=== PATIENT | female | born 1985 | race Caucasian/White ===

== ENCOUNTER 2016-11-22 12:06 | Emergency (ER) | payer MEDICAID ==
[2016-11-22 12:36] VITALS: BP 140/71
[2016-11-22] MEDS ORDERED: Sodium Chloride 0.9% 10 ML Syringe FLUSH PRN (13:08)
[2016-11-22] MEDS ORDERED: Iopamidol 612 MG/ML 150 ML Bottle IV SCH (13:15)
--- NOTE | 2016-11-22 13:41 | EDM.PDOC ---
[id number] Complaint: STOMACH IS SORE Time Seen by Provider: 11/22/16 12:45 Source of Information: Reports: Patient History Limitations: Reports: No limitations - History of Present Illness INITIAL COMMENTS - FREE TEXT/NARRATIVE: 31-year-old female with an ongoing and persistent sensation of pelvic pressure and inability to have a bowel movement for the last 2 weeks, started after spiking a fever for 2 days but had no diarrhea or vomiting. Since that time she said generalized myalgias, lower abdominal pain and a sensation of constipation. She's been seen at the clinic and has had lab and x-rays done and was given mag citrate. This caused several days of diarrhea but now she has not had a bowel movement in 3 days and she still has her symptoms, no new fevers. Duration: Week(s): (2 weeks) Location: Reports: abdomen ( lower abdomen and pelvic area) Quality: Reports: Ache, Pressure Severity: moderate Worsens with: Reports: Other (Worsens with bowel movement attempts) Associated Symptoms: Reports: fever/chills (Had a fever 2 weeks ago), other ( Generalized muscle aching). Denies: chest pain, cough, diaphoresis, nausea/ vomiting Lower Abdomen Pain Score (Numeric/FACES): 3 - Related Data Allergies Allergy/AdvReac Type Severity Reaction Status Date / Time No Known Allergies Allergy Verified 06/14/14 13:02 Past Medical History - Past Health History Medical/Surgical History: Denies Medical/Surgical History - Past Surgical History GI Surgical History: Reports: Cholecystectomy Social & Family History - Tobacco Use Smoking Status *Q: Current Every Day Smoker Years of Tobacco use: 20 Packs/Tins Daily: 0.5 Used Tobacco, but Quit: No Second Hand Smoke Exposure: Yes - Caffeine Use Caffeine Use: Reports: Coffee - Alcohol Use Days Per Week of Alcohol Use: 0 - Recreational Drug Use Recreational Drug Use: No Drug Use in Last 12 Months: Yes Recreational Drug Type: Reports: Methamphetamine Recreational Drug Use Frequency: Not Used In Over 3 Months ED ROS GENERAL - Review of Systems Review Of Systems: See Below Constitutional: Reports: fever (2 weeks ago), malaise HEENT: Reports: No symptoms Respiratory: Denies: Shortness of Breath Cardiovascular: Denies: Chest pain Endocrine: Denies: fatigue GI/Abdominal: Reports: Abdominal pain, Constipation : Reports: dysuria Musculoskeletal: Reports: other (Generalized muscle aches) Skin: Reports: no symptoms Neurological: Denies: Dizziness, Headache Psychiatric: Reports: No symptoms ED EXAM, GENERAL - Physical Exam Exam: See Below Exam Limited By: No limitations General Appearance: alert, no apparent distress Eye Exam: bilateral eye: normal inspection Respiratory/Chest: no respiratory distress, lungs clear Cardiovascular: regular rate, rhythm GI/Abdominal: Soft, Tender (Tenderness mostly across the left lower quadrant but no guarding or rebound) Rectal (Female) Exam: Normal Exam (Some discomfort with the exam but a small amount of soft brown stool is present. No impaction, stool was guaiaced and was negative.) Extremities: normal inspection Neurological: alert, oriented Course - Vital Signs Last Recorded V/S: Last Vital Signs Temp 98.2 F 11/22/16 12:34 Pulse 85 11/22/16 12:34 Resp 18 11/22/16 12:34 BP 140/71 11/22/16 12:34 Pulse Ox 98 11/22/16 12:34 - Orders/Labs/Meds Meds: Medications Discontinued Medications Generic Name Dose Route Start Last Admin Trade Name Freq PRN Reason Stop Dose Admin Sodium Chloride 79 mls @ 3 mls/sec 11/22/16 13:08 11/22/16 13:31 Normal Saline IV 11/22/16 13:09 3 mls/sec ONETIME ONE Administration Iopamidol 128 ml 11/22/16 13:15 11/22/16 13:31 Isovue-300 (61%) IV 128 ml . DIRECTED KELLY Administration Sodium Chloride 10 ml 11/22/16 13:08 11/22/16 13:31 Saline Flush FLUSH 10 ml ONETIME PRN Administration PER RADIOLOGY PROTOCOL - Re-Assessments/Exams Free Text/Narrative Re-Assessment/Exam: 11/22/16 13:40 Lab and urine were reviewed from 3 days ago at the clinic and were all normal. The stool was guaiac and was negative. Patient was scanned with CT of the abdomen and pelvis with IV contrast. 11/22/16 13:56 CT scan was negative. Had a long talk with the patient about getting back to her normal routine, normal diet, and try not to worry about bowel movement numbers and frequency. Encouraged probiotics. I think she is having a spastic colon in the sigmoid area from her recent illness and treatments. She can return anytime if worsening, especially fever or increased pain. Departure - Departure Time of Disposition: 14:18 Disposition: Home, Self-Care 01 Condition: good Clinical Impression: Abdominal pain - Discharge Information Instructions: Abdominal Pain, Adult, [id number] Referrals: Teri Mcdonald NP [Primary Care Provider] - Forms: ED Department Discharge Care Plan Goals: Try to increase diet and activity as tolerated. Return any time if worsening such as fever, increased pain, or consider recheck next week if not improving satisfactorily.
--- NOTE | 2016-11-22 13:51 | CT ---
Abdomen pelvis CT. History: Persistent abdominal pain. Technique: IV and oral contrast were administered followed by axial imaging from the lung bases exte nding through the abdomen and pelvis. Coronal images were reconstructed. Total DLP: 980 Comparison: May 2014. Findings: Limited evaluation of the lower lung dunne demonstrates no abnormalities. The gallbladder is surgically absent. The liver, pancreas, and spleen are unremarkable. The adrenal glands are normal in size. The kidneys demonstrate symmetric excretion of contrast. There is no hydr onephrosis or ureter. There is no large or small bowel distention. There is a lack of stool in the distal portion of the t ransverse colon. The rodriguez of the colon at this location appear mildly thickened. The finding likely reflects underdistention. There is trace fluid in the cul-de-sac which is likely physiologic. No ad nexal masses are demonstrated. Impression: 1. Prior cholecystectomy. 2. The rodriguez of the distal transverse colon appear mildly thickened. The finding likely reflects und erdistention. Mild colitis cannot be excluded. 2. No additional findings.
== END 2016-11-22 14:18 | disposition home or self-care (01) ==
LOC: JP.ED 12:06
DX: R10.32 Left lower quadrant pain (principal); F17.210 Nicotine dependence, cigarettes, uncomplicated; Z90.49 Acquired absence of other specified parts of digestive tract
CPT/HCPCS: 74177; 82272; 99284; J7030; J7050

== ENCOUNTER 2017-03-04 14:41 | Emergency (ER) | payer MEDICAID ==
[2017-03-04 15:00] VITALS: BP 127/71
--- NOTE | 2017-03-04 15:33 | EDM.PDOC ---
ED HPI GENERAL MEDICAL PROBLEM - General Chief Complaint: [facility] Problem Stated Complaint: 10 WEEKS PG - BLOODY MUCOUS Time Seen by Provider: 03/04/17 15:29 Source of Information: Reports: Patient History Limitations: Reports: No Limitations - History of Present Illness INITIAL COMMENTS - FREE TEXT/NARRATIVE: Pt with spotting and mucousy discharge noted this am about 0930. Mild pain in the right lower quadrant. No further bleeding since that time. No new meds. No new activities. Has had an initial ultrasound in January and everything was fine. Is a . New partner this . Is taking her vitamins as prescribed. Onset: Today Onset Date: 03/04/17 Onset Time: 09:30 Duration: Improving Severity: Mild Improves with: Reports: None Worsens with: Reports: None Associated Symptoms: Reports: No Other Symptoms Right Pelvic Pain Score (Numeric/FACES): 1 - Related Data Allergies Allergy/AdvReac Type Severity Reaction Status Date / Time No Known Allergies Allergy Verified 03/04/17 15:15 Past Medical History - Past Health History Medical/Surgical History: Denies Medical/Surgical History [facility] History: Reports: - Past Surgical History GI Surgical History: Reports: Cholecystectomy Social & Family History - Tobacco Use Smoking Status *Q: Unknown Ever Smoked Years of Tobacco use: 20 Packs/Tins Daily: 0.5 Used Tobacco, but Quit: No Second Hand Smoke Exposure: Yes - Caffeine Use Caffeine Use: Reports: Coffee - Alcohol Use Days Per Week of Alcohol Use: 0 - Recreational Drug Use Recreational Drug Use: No Drug Use in Last 12 Months: Yes Recreational Drug Type: Reports: Methamphetamine Recreational Drug Use Frequency: Not Used In Over 3 Months ED ROS GENERAL - Review of Systems Review Of Systems: See Below Constitutional: Reports: No Symptoms HEENT: Reports: No Symptoms Respiratory: Reports: No Symptoms Cardiovascular: Reports: No Symptoms : Reports: Discharge, Other (vaginal bleeding this am) ED EXAM - Physical Exam Exam: See Below Exam Limited By: No Limitations General Appearance: Alert, WD/WN, No Apparent Distress Nose: Normal Inspection, Normal Mucosa, No Blood Throat/Mouth: Normal Inspection, Normal Lips, Normal Teeth, Normal Gums, Normal Oropharynx, Normal Voice, No Airway Compromise Head: Atraumatic, Normocephalic Neck: Normal Inspection, Supple, Non-Tender, Full Range of Motion Respiratory/Chest: No Respiratory Distress, Lungs Clear, Normal Breath Sounds, No Accessory Muscle Use, Chest Non-Tender Cardiovascular: Normal Peripheral Pulses, Regular Rate, Rhythm, No Edema, No Gallop, No JVD, No Murmur, No Rub (Female) Exam: Normal External Exam, Normal Speculum Exam, Normal Bimanual Exam Heart Tones: Not Whitley Course - Vital Signs Last Recorded V/S: Last Vital Signs Temp 98.7 F 03/04/17 15:09 Pulse 70 03/04/17 15:09 Resp 16 03/04/17 15:09 BP 127/71 03/04/17 15:09 Pulse Ox 100 03/04/17 15:09 - Orders/Labs/Meds Orders: Active Orders 24 hr Category Date Time Status OB Transvaginal [US] Stat Exams 03/04/17 15:22 Taken PATIENT RETYPE [BBK] Stat Lab 03/04/17 15:23 Results TYPE AND SCREEN [BBK] Stat Lab 03/04/17 15:23 Results Labs: Laboratory Tests 03/04/17 03/04/17 03/04/17 Range/Units 15:23 15:30 15:30 WBC 9.0 (4.5-11.0) K/uL RBC 4.25 (3.30-5.50) M/uL Hgb 13.4 D (12.0-15.0) g/dL Hct 38.0 (36.0-48.0) % MCV 89 (80-98) fL MCH 32 H (27-31) pg MCHC 35 (32-36) % Plt Count 331 (150-400) K/uL Neut % (Auto) 67 H (36-66) % Lymph % (Auto) 22 L (24-44) % [place] % (Auto) 7 H (2-6) % Eos % (Auto) 3 (2-4) % Baso % (Auto) 1 (0-1) % HCG, Quant 89116 H (0-6) mIU/mL Blood Type O POSITIVE Gel Antibody Screen Negative Departure - Departure Time of Disposition: 16:39 Disposition: Home, Self-Care 01 Condition: Fair Clinical Impression: Incomplete miscarriage, Incomplete - Discharge Information Forms: ED Department Discharge Additional Instructions: CBC WNL. Stable hemoglobin of 13.4. Blood type O+. Quantitative HCG 09713. Ultrasound reveals no heart tones. Pt informed of results. Will need to followup with [facility] for serial HCG's until down to 0. May discuss D&C with them. Discussed normal course of miscarriage. Pt voices understanding. - Problem List & Annotations (1) Incomplete miscarriage SNOMED Code(s): 112974221 Code(s): O03.4 - INCOMPLETE SPONTANEOUS WITHOUT COMPLICATION Status: Acute Priority: Medium Current Visit: Yes - My Orders Last 24 Hours: My Active Orders 03/04/17 15:22 OB Transvaginal [US] Stat 03/04/17 15:23 PATIENT RETYPE [BBK] Stat TYPE AND SCREEN [BBK] Stat - Assessment/Plan Last 24 Hours: My Active Orders 03/04/17 15:22 OB Transvaginal [US] Stat 03/04/17 15:23 PATIENT RETYPE [BBK] Stat TYPE AND SCREEN [BBK] Stat
== END 2017-03-04 16:57 | disposition home or self-care (01) ==
LOC: JP.ED 14:41
DX: O03.4 Incomplete spontaneous abortion without complication (principal); Z90.49 Acquired absence of other specified parts of digestive tract
CPT/HCPCS: 36415; 76817; 84702; 85025; 86850; 86900; 86901; 99284-25

== ENCOUNTER 2018-11-30 12:10 | Emergency (ER) | payer MEDICAID ==
[2018-11-30 12:45] VITALS: BP 144/72
--- NOTE | 2018-11-30 12:58 | EDM.PDOC ---
ED HPI GENERAL MEDICAL PROBLEM - General Chief Complaint: ENT Problem Stated Complaint: SORE THROAT Time Seen by Provider: 11/30/18 12:28 History Limitations: Reports: No Limitations - History of Present Illness INITIAL COMMENTS - FREE TEXT/NARRATIVE: chief complaint: sore throat this is a 33 year old female present to ER for evaluation of sore throat since last night. getting worse, now with body ache. 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 Onset: Gradual Onset Date: 11/29/18 Duration: Hour(s):, Getting Worse Location: Reports: Generalized (body aches and sore throat) Quality: Reports: Same as Previous Episode Severity: Moderate Improves with: Reports: None Worsens with: Reports: None Context: Reports: Sick Contact Associated Symptoms: Reports: Fever/Chills, Malaise, Other (sore throat) - Related Data Allergies Allergy/AdvReac Type Severity Reaction Status Date / Time No Known Allergies Allergy Verified 11/30/18 12:26 Home Meds: Home Meds Levonorgestrel-Ethin Estradiol [Levora-28 Tablet] 11/30/18 [History] Past Medical History - Past Health History Medical/Surgical History: Denies Medical/Surgical History [employer] History: Reports: - Past Surgical History GI Surgical History: Reports: Cholecystectomy Social & Family History - Tobacco Use Smoking Status *Q: Current Every Day Smoker Years of Tobacco use: 15 Packs/Tins Daily: 0.5 - Caffeine Use Caffeine Use: Reports: Coffee - Living Situation & Occupation 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.) ED ROS ENT - Review of Systems Review Of Systems: See Below Constitutional: Reports: Fever, Chills, Malaise, Fatigue HEENT: Reports: Throat Pain Respiratory: Reports: No Symptoms Cardiovascular: Reports: No Symptoms Endocrine: Reports: No Symptoms GI/Abdominal: Reports: No Symptoms Skin: Reports: No Symptoms Neurological: Reports: No Symptoms Psychiatric: Reports: No Symptoms Hematologic/Lymphatic: Reports: No Symptoms ED EXAM, ENT - Physical Exam Exam: See Below Exam Limited By: No Limitations General Appearance: Alert, WD/WN, No Apparent Distress Eye Exam: Bilateral Eye: Normal Inspection Ears: Normal External Exam, Normal Canal, Hearing Grossly Normal, Normal TMs Nose: Normal Inspection, Normal Mucousa, No Blood Mouth/Throat: Normal Gums, Normal Lips, Normal Teeth, Tonsillar Erythema, Tonsillar Exudates, Tonsillar Swelling Head: Atraumatic, Normocephalic Neck: Normal Inspection, Supple, Lymphadenopathy (R), Lymphadenopathy (L) Respiratory/Chest: No Respiratory Distress, Lungs Clear, Normal Breath Sounds Cardiovascular: Regular Rate, Rhythm, No Murmur Back: Normal Inspection, Full Range of Motion Extremities: Normal Inspection, Normal Range of Motion Neurological: No Motor/Sensory Deficits Psychiatric: Normal Affect, Normal Mood Skin: Warm, Dry, Intact, Normal Color, No Rash Lymphatic: Adenopathy Course - Vital Signs Last Recorded V/S: Last Vital Signs Temp 37.4 C 11/30/18 12:34 Pulse 92 11/30/18 12:34 Resp 17 11/30/18 12:34 BP 144/72 H 11/30/18 12:34 Pulse Ox 92 L 11/30/18 12:34 - Re-Assessments/Exams Free Text/Narrative Re-Assessment/Exam: 11/30/18 12:55 strep throat positive, will treat for strep throat, work slip given. Departure - Departure Time of Disposition: 12:56 Disposition: Home, Self-Care 01 Condition: Good Clinical Impression: Strep sore throat - Discharge Information *PRESCRIPTION DRUG MONITORING PROGRAM REVIEWED*: Not Applicable *COPY OF PRESCRIPTION DRUG MONITORING REPORT IN PATIENT NATA: Not Applicable Instructions: Sore Throat, [id number], Strep Throat Referrals: PCP,None [Primary Care Provider] - Forms: ED Department Discharge, ED Return to Work/School Form Care Plan Goals: Strep Throat -Zithromax daily for 5 days -take Motrin and Tylenol as directed for pain or fever -new tooth brush -avoid sharing food or drink x 24 hours or until symptom resolve -no work sunday Return to ER if not improved or symptoms worsen. - Problem List & Annotations (1) Strep sore throat SNOMED Code(s): 58709766 Code(s): J02.0 - STREPTOCOCCAL PHARYNGITIS Status: Acute Priority: High Current Visit: Yes - Problem List Review Problem List Initiated/Reviewed/Updated: Yes - Assessment/Plan Plan: Strep Throat -Zithromax daily for 5 days -take Motrin and Tylenol as directed for pain or fever -new tooth brush -avoid sharing food or drink x 24 hours or until symptom resolve -no work sunday Return to ER if not improved or symptoms worsen.
== END 2018-11-30 13:09 | disposition home or self-care (01) ==
LOC: JP.ED 12:10
DX: J02.0 Streptococcal pharyngitis (principal); Z79.3 Long term (current) use of hormonal contraceptives; F17.200 Nicotine dependence, unspecified, uncomplicated; Z90.49 Acquired absence of other specified parts of digestive tract
CPT/HCPCS: 87430; 99283

== ENCOUNTER 2019-02-20 20:32 | Emergency (ER) | payer MEDICAID ==
[2019-02-20 21:10] VITALS: BP 129/74; PULSE 86
--- NOTE | 2019-02-20 21:47 | EDM.PDOC ---
ED HPI GENERAL MEDICAL PROBLEM - General Chief Complaint: ENT Problem Stated Complaint: STREP THROAT Time Seen by Provider: 02/20/19 21:46 Source of Information: Reports: Patient History Limitations: Reports: No Limitations - History of Present Illness INITIAL COMMENTS - FREE TEXT/NARRATIVE: pt has recurrent sore throat. She just finished a treament for strept and was off of it about 3 days and she started getting ill again. She has had a fever and her throat is very sore tonight. Onset: Today Duration: Hour(s): Location: Reports: Neck, Other (pt has a recurrent sore throat. ) Associated Symptoms: Reports: Fever/Chills Treatments AUDOGRAPH OPERATOR: Reports: Other (see below) Other Treatments AUDOGRAPH OPERATOR: amoxicillin throat Pain Score (Numeric/FACES): 8 - Related Data Allergies Allergy/AdvReac Type Severity Reaction Status Date / Time No Known Allergies Allergy Verified 02/20/19 21:46 Home Meds: Home Meds Levonorgestrel-Ethin Estradiol [Levora-28 Tablet] 1 tab PO DAILY 11/30/18 [ History] Past Medical History - Past Health History Medical/Surgical History: Denies Medical/Surgical History [facility] History: Reports: - Past Surgical History GI Surgical History: Reports: Cholecystectomy Social & Family History - Caffeine Use Caffeine Use: Reports: Coffee - Living Situation & Occupation 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 She had strept and just finished a course of amoxicillin. She was off about 3 days and had a sore throat again. Exam Limited By: No Limitations General Appearance: Alert, Anxious Ears: Normal TMs Nose: Normal Inspection Mouth/Throat: Throat Pain, Throat Swelling, Tonsillar Erythema, Tonsillar Exudates Head: Atraumatic Neck: Normal Inspection Respiratory/Chest: No Respiratory Distress Cardiovascular: Regular Rate, Rhythm GI/Abdominal: Soft, Non-Tender Course - Vital Signs Last Recorded V/S: Last Vital Signs Temp 36.2 C 02/20/19 21:45 Pulse 86 08/08/19 21:45 Resp 18 02/20/19 21:45 BP 129/74 02/20/19 21:45 Pulse Ox 100 02/20/19 21:45 - Re-Assessments/Exams Free Text/Narrative Re-Assessment/Exam: 02/20/19 21:56 pt had a positive strept. Departure - Departure Time of Disposition: 21:47 Disposition: Home, Self-Care 01 Condition: Fair Clinical Impression: Streptococcal pharyngitis - Discharge Information Instructions: Strep Throat, [id number] Referrals: PCP,None [Primary Care Provider] - Forms: ED Department Discharge Care Plan Goals: amoxicillin 500mg 2 tabs bid for 18 days, If pt has recurrent strept she should consider a tonsilectomy
== END 2019-02-20 22:05 | disposition home or self-care (01) ==
LOC: JP.ED 20:32
DX: J02.0 Streptococcal pharyngitis (principal)
CPT/HCPCS: 87880-QW; 99283

== ENCOUNTER 2021-01-24 13:45 | Emergency (ER) | payer MEDICAID ==
--- NOTE | 2021-01-24 16:06 | EDM.PDOC ---
ED HPI GENERAL MEDICAL PROBLEM - General Chief Complaint: Respiratory Problem Stated Complaint: SHAKY, DIZZY, WEAK, COUGHING Time Seen by Provider: 01/24/21 16:00 Source of Information: Reports: Patient, Family History Limitations: Reports: No Limitations - History of Present Illness INITIAL COMMENTS - FREE TEXT/NARRATIVE: 35-year-old female, half a pack of cigarettes daily minimum smoker, presents with worsening cough for the past 1 to 2 weeks. She was seen in the clinic 2 or 3 days ago, chest x-ray was done and she was given some cold medicine and cough suppression. No fevers or chills. She feels she is not improving, and is starting to get anxious, hyperventilate, and feel more uncomfortable. Onset: Gradual Duration: Week(s): (Symptoms for the past couple weeks) Associated Symptoms: Reports: Chest Pain (Chest pain developing from coughing), Cough, Malaise, Shortness of Breath, Weakness, Other (Dizziness, lightheaded). Denies: Confusion Throat Pain Score (Numeric/FACES): 2 - Related Data Allergies Allergy/AdvReac Type Severity Reaction Status Date / Time No Known Allergies Allergy Verified 01/24/21 15:29 Home Meds: Home Meds Cetirizine [ZyrTEC] 10 mg PO BEDTIME 01/24/21 [History] Loratadine 10 mg PO DAILY 01/24/21 [History] Past Medical History - Past Health History Medical/Surgical History: Denies Medical/Surgical History HEENT History: Reports: Other (See Below) Other HEENT History: strep throat three times this year (2019) [employer] History: Reports: - Past Surgical History GI Surgical History: Reports: Cholecystectomy Social & Family History - Tobacco Use Tobacco Use Status *Q: Heavy Tobacco User Years of Tobacco use: 23 Packs/Tins Daily: 0.5 - Caffeine Use Caffeine Use: Reports: None - Recreational Drug Use Recreational Drug Use: No - Living Situation & Occupation 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 Denies: Fever, Chills HEENT: Denies: Ear Pain, Throat Pain Respiratory: Reports: Shortness of Breath, Wheezing, Cough. Denies: Sputum Cardiovascular: Reports: Chest Pain. Denies: Palpitations GI/Abdominal: Denies: Abdominal Pain, Nausea, Vomiting Musculoskeletal: Denies: Neck Pain Skin: Denies: Pallor Neurological: Denies: Headache Psychiatric: Reports: No Symptoms ED EXAM, GENERAL - Physical Exam Exam: See Below Exam Limited By: No Limitations General Appearance: Alert, Anxious. No: No Apparent Distress Eye Exam: Bilateral Eye: EOMI, PERRL Ears: Normal TMs Head: Atraumatic Respiratory/Chest: No Respiratory Distress, Rales (A few perihilar rales), Wheezing (Diffuse expiratory wheezes) Cardiovascular: Regular Rate, Rhythm GI/Abdominal: Non-Tender Neurological: Alert, Oriented Psychiatric: Anxious Skin Exam: Warm, Dry Course - Vital Signs Last Recorded V/S: Last Vital Signs Temp 97.9 F 01/24/21 15:27 Pulse 67 01/24/21 16:54 Resp 13 01/24/21 16:54 BP 139/79 01/24/21 16:54 Pulse Ox 96 01/24/21 16:54 - Orders/Labs/Meds Labs: Laboratory Tests 01/24/21 Range/Units 16:30 SARS CoV-2 RNA Rapid BIANCA Negative - Re-Assessments/Exams Free Text/Narrative Re-Assessment/Exam: 01/24/21 16:06 A Covid study was obtained as well as a two-view chest x-ray. 01/25/21 09:47 Covid was negative, patient will be placed on 60 mg of prednisone daily for 5 consecutive days and a Z-Hector. Continue with her albuterol as needed and avoid smoking if possible. She can return anytime if worsening or concerns. Departure - Departure Time of Disposition: 17:10 Disposition: Home, Self-Care 01 Clinical Impression: Bronchitis, Anxiety - Discharge Information Instructions: Acute Bronchitis, Adult, [id number] Referrals: Cynthia Fontanez CNM [Primary Care Provider] - Forms: ED Department Discharge Care Plan Goals: Take 6 pills of prednisone with food daily for 5 consecutive days. Also take Zithromax as prescribed. Use Ativan up to twice daily to help with sleep. Consider rechecking in 2 to 3 days if not improving satisfactorily. Sepsis Event Note (ED) - Evaluation Sepsis Screening Result: No Definite Risk
[2021-01-24 16:55] VITALS: BP 139/79; PULSE 67
--- NOTE | 2021-01-25 08:58 | CR ---
CHEST: 2 view CLINICAL HISTORY:Dyspnea COMPARISON:2010 FINDINGS: The heart size, pulmonary vascularity and hilar structures are normal. No infiltrate effusion or pneumothorax is seen. IMPRESSION: No acute cardiopulmonary process.
== END 2021-01-24 17:16 | disposition home or self-care (01) ==
LOC: JP.ED 13:45
DX: J40 Bronchitis, not specified as acute or chronic (principal); F41.9 Anxiety disorder, unspecified; Z72.0 Tobacco use; Z20.822 Contact with and (suspected) exposure to COVID-19
CPT/HCPCS: 71046; 71046-26; 99283-25; U0002

== ENCOUNTER 2021-07-04 22:40 | Emergency (ER) | payer MEDICAID ==
[2021-07-04 23:12] VITALS: BP 140/85; PULSE 88
--- NOTE | 2021-07-04 23:20 | EDM.PDOC ---
ED HPI GENERAL MEDICAL PROBLEM - General Chief Complaint: Genitourinary Problem Stated Complaint: MEDICAL Time Seen by Provider: 07/04/21 22:50 Source of Information: Reports: Patient History Limitations: Reports: No Limitations - History of Present Illness INITIAL COMMENTS - FREE TEXT/NARRATIVE: 36-year-old female with significant anxiety, is concerned she may have a foreign body or tripped vaginal trauma after using some type of plastic vibrator that had a small metal piece punctured through the plastic and injured the vaginal wall about 1 month ago. She had some bleeding, and since that time she has had several recurring cramping and intermittent bleeding. Tonight her abdominal cramping was fairly significant so she came in to be seen. She does not seem to be having any cramping currently. No fevers or chills. No current vaginal bleeding. According to the patient she has occasional uterine prolapse. Onset: Sudden (The injury was fairly sudden several weeks ago) Location: Reports: Other (Vaginal or pelvic area) Quality: Reports: Other (Recurring cramping) Associated Symptoms: Reports: No Other Symptoms. Denies: Fever/Chills, Loss of Appetite, Nausea/Vomiting, Shortness of Breath Lower Abdomen Pain Score (Numeric/FACES): 6 - Related Data Allergies Allergy/AdvReac Type Severity Reaction Status Date / Time No Known Allergies Allergy Verified 07/04/21 22:53 Home Meds: Home Meds Cetirizine [ZyrTEC] 10 mg PO BEDTIME 01/24/21 [History] Loratadine 10 mg PO DAILY 01/24/21 [History] Past Medical History - Past Health History Medical/Surgical History: Denies Medical/Surgical History HEENT History: Reports: Other (See Below) Other HEENT History: strep throat three times this year (2019) PURSE SEINING HAND History: Reports: , Prolapsed Uterus Psychiatric History: Reports: Addiction, Anxiety - Infectious Disease History Infectious Disease History: Reports: Chicken Pox - Past Surgical History GI Surgical History: Reports: Cholecystectomy Social & Family History - Tobacco Use Tobacco Use Status *Q: Heavy Tobacco User Years of Tobacco use: 23 Packs/Tins Daily: 0.5 - Caffeine Use Caffeine Use: Reports: None - Recreational Drug Use Recreational Drug Use: No - Living Situation & Occupation 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 Denies: Discharge Musculoskeletal: Denies: Back Pain Skin: Reports: No Symptoms Neurological: Reports: No Symptoms ED EXAM, GI/ABD - Physical Exam Exam: See Below Exam Limited By: No Limitations General Appearance: Alert, No Apparent Distress, Anxious Eyes: Bilateral: Normal Appearance Head: Atraumatic Respiratory/Chest: No Respiratory Distress, Lungs Clear Cardiovascular: Regular Rate, Rhythm (Female) Exam: Normal External Exam, Normal Speculum Exam. No: Adnexal Mass, Cervical Dilatation, Vaginal Bleeding Extremities: Normal Inspection Neurological: Alert, Oriented Psychiatric: Anxious Skin Exam: Warm, Dry Course - Vital Signs Last Recorded V/S: Last Vital Signs Temp 98.1 F 07/04/21 23:03 Pulse 88 07/04/21 23:03 Resp 16 07/04/21 23:03 BP 140/85 07/04/21 23:03 Pulse Ox 98 07/04/21 23:03 - Orders/Labs/Meds Orders: Active Orders 24 hr Category Date Time Status Pelvis 1V or 2V [CR] Stat Exams 07/04/21 23:05 Taken - Re-Assessments/Exams Free Text/Narrative Re-Assessment/Exam: 07/05/21 06:03 Vaginal speculum exam was done which showed no foreign body or evidence of trauma. There was no bleeding. An x-ray was then done of the abdomen and pelv is to rule out foreign body and showed only her IUD. No treatment was needed at this visit, she was encouraged to see her primary provider for follow-up. Departure - Departure Time of Disposition: 23:21 Disposition: Home, Self-Care 01 Clinical Impression: Pelvic cramping, Vaginal bleeding - Discharge Information Instructions: Pelvic Pain, Female, [id number] Referrals: PCP,None [Primary Care Provider] - Forms: ED Department Discharge Care Plan Goals: Recheck at the clinic in the near future to discuss possible reasons for the continued pelvic cramping and discomfort, you may need a change in your IUD or some other adjustment with your hormones. Return to the emergency room if worsening such as increased pain, fever, nausea or vomiting or other concerns. Sepsis Event Note (ED) - Evaluation Sepsis Screening Result: No Definite Risk - Focused Exam Vital Signs: Vital Signs Temp Pulse Resp BP Pulse Ox 07/04/21 23:03 98.1 F 88 16 140/85 98 - My Orders Last 24 Hours: My Active Orders 07/04/21 23:05 Pelvis 1V or 2V [CR] Stat - Assessment/Plan Last 24 Hours: My Active Orders 07/04/21 23:05 Pelvis 1V or 2V [CR] Stat
--- NOTE | 2021-07-05 09:43 | CR ---
Pelvis 1V or 2V CLINICAL HISTORY: Possible vaginal foreign body FINDINGS: Bony pelvis appears intact. There is an IV in the to the left of midline. There is a tiny metallic of focus near the left iliac crest the which appears to be retained staple or steel suture. It is unchanged since CTs from 2013 and 2017. No radiopaque foreign body is identified in the visualized pelvic region IMPRESSION: Tiny staple in left lower quadrant unchanged from 2014 Nonacute gas pattern IUD in place No low pelvic metallic foreign body. It should be noted that the vaginal introitus is below the image margin. This should be correlated with the pelvic exam
== END 2021-07-04 23:25 | disposition home or self-care (01) ==
LOC: JP.ED 22:40
DX: N93.9 Abnormal uterine and vaginal bleeding, unspecified (principal); Z72.0 Tobacco use
CPT/HCPCS: 72170; 72170-26; 99284-25

== ENCOUNTER 2021-09-16 14:52 | Emergency (ER) | payer MEDICAID ==
[2021-09-16 15:09] VITALS: BP 121/42; PULSE 88
[2021-09-16] MEDS ORDERED: Sodium Chloride 0.9% 1,000 ML IV SCH (15:45)
== END 2021-09-16 17:35 | disposition home or self-care (01) ==
LOC: JP.ED 14:52
DX: R10.32 Left lower quadrant pain (principal); R11.2 Nausea with vomiting, unspecified; F17.210 Nicotine dependence, cigarettes, uncomplicated
CPT/HCPCS: 36415; 80053; 83690; 85025; 96374; 99282; 99284-25; J1790; J7030

== ENCOUNTER 2024-06-03 12:06 | Emergency (ER) | payer MEDICAID ==
[2024-06-03 12:17] VITALS: PULSE 102
[2024-06-03 12:54] VITALS: BP 137/85
== END 2024-06-03 14:04 | disposition home or self-care (01) ==
LOC: JP.ED 12:06
DX: K02.9 Dental caries, unspecified (principal); J45.909 Unspecified asthma, uncomplicated; F17.210 Nicotine dependence, cigarettes, uncomplicated; Z79.899 Other long term (current) drug therapy; Z90.49 Acquired absence of other specified parts of digestive tract
CPT/HCPCS: 99282; 99283

== ENCOUNTER 2025-05-27 12:51 | Emergency (ER) | payer MEDICAID ==
[2025-05-27 13:30] LABS: APPEARANCE,URINE CLOUDY (CLEAR); GLUCOSE,URINE NEGATIVE (NEGATIVE); OCCULT BLOOD,URINE MODERATE (NEGATIVE)
[2025-05-27 13:35] VITALS: BP 131/70; PULSE 117
[2025-05-27 13:39] LABS: SQUAMOUS EPITHELIAL CELLS,UR RARE /HPF; UROTHELIAL CELLS,URINE NOT SEEN /HPF
== END 2025-05-27 15:18 | disposition home or self-care (01) ==
LOC: JP.ED 12:51
DX: N39.0 Urinary tract infection, site not specified (principal); J45.909 Unspecified asthma, uncomplicated; F17.200 Nicotine dependence, unspecified, uncomplicated; Z90.49 Acquired absence of other specified parts of digestive tract; Z79.899 Other long term (current) drug therapy
CPT/HCPCS: 81001; 87086; 87088; 87186; 99283

== ENCOUNTER 2025-05-30 07:51 | Emergency (ER) | payer MEDICAID ==
[2025-05-30] MEDS: cefTRIAXone 1 GM, Lidocaine 1% 2.1 ML IM ONE (09:06)
[2025-05-30] MEDS: Ondansetron 4 MG Tab.DIS PO ONE (09:06)
[2025-05-30 10:01] VITALS: BP 102/78; PULSE 107
== END 2025-05-30 10:01 | disposition home or self-care (01) ==
LOC: JP.ED 07:51
DX: N39.0 Urinary tract infection, site not specified (principal); F17.200 Nicotine dependence, unspecified, uncomplicated; Z79.899 Other long term (current) drug therapy
CPT/HCPCS: 96372; 99283; A9270; J0696; J2003; Q0162

== ENCOUNTER 2025-07-08 01:07 | Emergency (ER) | payer MEDICAID ==
[2025-07-08] MEDS ORDERED: Sodium Chloride 0.9% 10 ML Syringe FLUSH PRN (01:39)
[2025-07-08 01:53] LABS: BASOPHILS ABSOLUTE AUTO 0.04 K/uL (0.00-0.10); BASOPHILS PERCENT AUTO 0.5 % (0.1-1.3); EOSINOPHILS ABSOLUTE AUTO 0.18 K/uL (0.00-0.40); EOSINOPHILS PERCENT AUTO 2.0 % (0.0-5.4); IMMATURE GRAN PERCENT AUTO 0.1 % (0.0-0.7); LYMPHOCYTES ABSOLUTE AUTO 2.61 K/uL (0.8-3.3); LYMPHOCYTES PERCENT AUTO 29.6 % (11.4-47.7); MONOCYTES ABSOLUTE AUTO 0.60 K/uL (0.20-0.90); MONOCYTES PERCENT AUTO 6.8 % (3.3-12.6); NEUTROPHILS ABSOLUTE AUTO 5.39 K/uL (1.0-7.6); NEUTROPHILS PERCENT AUTO 61.0 % (40.0-78.1); PLATELET COUNT,PLT 401 K/uL (130-375); RED BLOOD CELL COUNT 4.30 M/uL (3.77-5.24); WHITE BLOOD CELL COUNT,WBC 8.8 K/uL (3.2-11.0)
[2025-07-08 02:04] LABS: BLOOD UREA NITROGEN,BUN 12.0 mg/dL (7-18); CARBON DIOXIDE,CO2 30.0 mmol/L (21-32); CHLORIDE,CL 101.0 mmol/L (100-108); CREATININE 0.7 mg/dL (0.6-1.0); EST CRCL DRUG DOSING (CG) 94.21 mL/min; ESTIMATED GFR 111.0 mL/min (>60); GLUCOSE RANDOM 101.0 mg/dL (74-106); POTASSIUM,K 3.8 mmol/L (3.6-5.2); SODIUM,NA 138.0 mmol/L (140-148)
[2025-07-08 02:05] LABS: IMMATURE GRAN ABSOLUTE AUTO 0.01 K/uL (0.00-0.23)
[2025-07-08] MEDS: Iopamidol 755 Mg/ML 100 ML Bottle IV SCH (03:19)
[2025-07-08] MEDS: Sodium Chloride 0.9% 10 ML Syringe FLUSH PRN (03:21)
[2025-07-08] MEDS: Iopamidol 612 MG/ML 200 ML Bottle IV SCH (03:28)
[2025-07-08 04:17] VITALS: BP 133/82; PULSE 85
== END 2025-07-08 04:47 | disposition home or self-care (01) ==
LOC: JP.ED 01:07
DX: L03.116 Cellulitis of left lower limb (principal); J45.909 Unspecified asthma, uncomplicated; F17.200 Nicotine dependence, unspecified, uncomplicated; Z90.49 Acquired absence of other specified parts of digestive tract; Z79.899 Other long term (current) drug therapy
CPT/HCPCS: 36415; 73706; 80048; 83605; 85025; 99284; J7030; Q9967; 99283